=== PATIENT | female | born 1995 | race Caucasian/White ===

== ENCOUNTER 2022-12-30 10:14 | Emergency (ER) | payer OTHER ==
--- NOTE | 2022-12-30 10:17 | ERPHSYRPT ---
- History of Present Illness Time Seen by Provider: 12/30/22 10:17 Source: patient Exam Limitations: no limitations Physician History: This is a 27-year-old white female who is chronically on Lexapro and presents with gross hematuria, mild nonradiating chest tightness, dizziness and headache. Patient was 5 days late from her last menstrual period. She noticed hematuria. 2 days ago she took a urine test which was negative followed by a negative serum test. She has the above-stated symptoms today and she wanted evaluated. She denies shortness of breath. She has had light pelvic cramping. Timing/Duration: day(s) Severity: mild Character of Deficits: none Deficits: no difficulties Baseline/Normal Cognition: alert oriented x 3 Current Cognition: alert oriented x 3 Associated Symptoms: chest pain, headache Allergies/Adverse Reactions: No Known Drug Allergies Allergy (Unverified 12/30/22 10:33) Home Medications: Escitalopram Oxalate [Lexapro] 20 mg PO DAILY 12/30/22 [History] Travel Risk - International Travel Have you traveled outside of the country in past 3 weeks: No - Coronavirus Screening Are you exhibiting any of the following symptoms?: No Close contact with a COVID-19 positive Pt in past 14-21 Days: No - Review of Systems Constitutional: No Symptoms Eyes: No Symptoms Ears, Nose, & Throat: No Symptoms Respiratory: No Symptoms Cardiac: Chest Pain (Mild substernal nonradiating chest tightness) Abdominal/Gastrointestinal: No Symptoms Genitourinary Symptoms: No Symptoms Musculoskeletal: No Symptoms Skin: No Symptoms Neurological: Dizziness, Headache Psychological: No Symptoms Endocrine: No Symptoms Hematologic/Lymphatic: No Symptoms Immunological/Allergic: No Symptoms All Other Systems: Reviewed and Negative - Past Medical History Pertinent Past Medical History: Yes - Past Surgical History Past Surgical History: Yes - Nursing Vital Signs Nursing Vital Signs: Initial Vital Signs Temperature 98.3 F 12/30/22 10:44 Pulse Rate 75 12/30/22 10:44 Respiratory Rate 18 12/30/22 10:44 Blood Pressure 135/85 12/30/22 10:44 O2 Sat by Pulse Oximetry 99 12/30/22 10:44 Pain Scale Pain Intensity 5 - Quoc Coma Scale Best Eye Response (Olds): (4) open spontaneously Best Verbal Response (Olds): (5) oriented Best Motor Response (Quoc): (6) obeys commands Olds Total: 15 - Physical Exam General Appearance: no apparent distress, alert, anxiety Eye Exam: bilateral eye: normal inspection, PERRL, EOMI Ears, Nose, Throat Exam: normal ENT inspection, moist mucous membranes Neck Exam: normal inspection, non-tender, supple, full range of motion Respiratory: normal breath sounds, chest tenderness (Described as a mild substernal nonradiating chest tightness), lungs clear, airway intact, No re spiratory distress Cardiovascular: regular rate/rhythm, normal heart sounds, normal peripheral pulses Gastrointestinal: soft, normal bowel sounds, No tenderness Pelvic Exam: not done Rectal Exam: not done Back Exam: normal inspection, normal range of motion, No CVA tenderness, No vertebral tenderness Extremity Exam: normal inspection, normal range of motion, pelvis stable Mental Status: alert, oriented x 3, 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 Exam: normal hearing, normal speech, PERRL, tongue midline Coordination/Gait: normal finger to nose, normal gait, normal cerebellar function Motor/Sensory: no motor deficit, no sensory deficit, no pronator drift Skin Exam: normal color, warm, dry SpO2 Interpretation: normal O2 Delivery: Room Air - Course Nursing assessment & vital signs reviewed: Yes EKG Interpreted by Me: RATE (68), Sinus Rhythm, NORMAL AXIS, NORMAL INTERVALS, NORMAL QRS, NORMAL ST-T, Other (No acute ischemic changes on today's twelve-lead EKG.) Ordered Tests: Active Orders 24 hr Category Date Time Status EKG-ER Only STAT Care 12/30/22 10:56 Active IV Insertion STAT Care 12/30/22 10:56 Active CBC W DIFF Stat Lab 12/30/22 11:00 Completed CMP Stat Lab 12/30/22 11:00 Completed CULTURE,URINE Stat Lab 12/30/22 11:00 Received HCG QUALITATIVE, SERUM Stat Lab 12/30/22 11:00 Completed TROPONIN Q4H Lab 12/30/22 11:00 Completed TROPONIN Q4H Lab 12/30/22 15:00 Ordered TROPONIN Q4H Lab 12/30/22 19:00 Ordered UA W/RFX UR CULTURE Stat Lab 12/30/22 11:00 Completed Medication Summary Generic Name Dose Route Start Last Admin Trade Name Freq PRN Reason Stop Dose Admin Sodium Chloride 1,000 mls @ 999 mls/hr 12/30/22 10:56 12/30/22 11:00 Sodium Chloride 0.9% 1000 Ml IV 12/30/22 11:56 999 mls/hr .Q1H1M STA Administration Ceftriaxone Sodium/Dextrose 1 g in 50 mls @ 100 mls/hr 12/30/22 11:35 12/30/22 11:42 Rocephin 1 Gm-D5w 50 Ml Bag IV 12/30/22 12:04 100 ml/hr STAT STA 100 mls/hr Administration Discontinued Medications Generic Name Dose Route Start Last Admin Trade Name Rajeev PRN Reason Stop Dose Admin Sodium Chloride Confirm 12/30/22 10:59 Sodium Chloride 0.9% 1000 Ml Administered 12/30/22 11:00 Dose 1,000 mls @ ud .ROUTE .STK-MED ONE Ceftriaxone Sodium/Dextrose Confirm 12/30/22 11:40 Rocephin 1 Gm-D5w 50 Ml Bag Administered 12/30/22 11:41 Dose 1 g in 50 mls @ ud IV [facility] Lab/Rad Data: Laboratory Result Diagrams 12/30/22 11:00 12/30/22 11:00 Laboratory Results 12/30/22 12/30/22 12/30/22 Range/Units 11:00 11:00 11:00 WBC (4.0-10.5) x10^3/uL RBC (4.1-5.4) x10^6/uL Hgb (12.0-16.0) g/dL Hct (35-47) % MCV (78-100) fL MCH (26-32) pg MCHC (32-36) g/dL RDW (11.5-14.0) % Plt Count (150-450) x10^3/uL MPV (7.5-11.0) fL Gran % (36.0-66.0) % Immature Gran % (Auto) (0.00-0.4) % Nucleat RBC Rel Count (0.00-0.1) % Eos # (Auto) (0-0.5) x10^3/uL Immature Gran # (Auto) (0.00-0.03) x10^3u/L Absolute Lymphs (auto) (1.0-4.6) x10^3/uL Absolute Monos (auto) (0.0-1.3) x10^3/uL Absolute Nucleated RBC (0.00-0.01) x10^3u/L Lymphocytes % (24.0-44.0) % Monocytes % (0.0-12.0) % Eosinophils % (0.00-5.0) % Basophils % (0.0-0.4) % Absolute Granulocytes (1.4-6.9) x10^3/uL Basophils # (0-0.4) x10^3/uL Sodium (137-145) mmol/L Potassium (3.5-5.1) mmol/L Chloride (98-107) mmol/L Carbon Dioxide (22-30) mmol/L Anion Gap (5-15) MEQ/L BUN (7-17) mg/dL Creatinine (0.52-1.04) mg/dL Estimated GFR ML/MIN Glucose (74-106) mg/dL Calcium (8.4-10.2) mg/dL Total Bilirubin (0.2-1.3) mg/dL AST (14-36) U/L ALT (0-35) U/L Alkaline Phosphatase (38-126) U/L Troponin I < 0.012 (0.000-0.034) ng/mL Serum Total Protein (6.3-8.2) g/dL Albumin (3.5-5.0) g/dL Serum HCG, Qual NEGATIVE (NEGATIVE) Urine Color Red A (Yellow) Urine Appearance Turbid A (Clear) Urine pH 5.0 (4.6-8.0) Ur Specific [place] 1.025 (1.005-1.030) Urine Protein 100 A (Negative) Urine Glucose (UA) Negative (Negative) mg/dL Urine Ketones Negative (Negative) Urine Blood Large A (Negative) Urine Nitrite Negative (Negative) Urine Bilirubin Small A (Negative) Urine Urobilinogen 0.2 (0.2) mg/dL Ur Leukocyte Esterase Small A (Negative) U Hyaline Cast (Auto) NONE SEEN (0-2) /LPF Urine Microscopic RBC >100 A (0-5) /HPF Urine Microscopic WBC 21-50 A (0-5) /HPF Ur Epithelial Cells None Seen (None Seen) /HPF Urine Bacteria None Seen (None Seen) /HPF Urine Culture Reflexed YES (NO) 12/30/22 12/30/22 Range/Units 11:00 11:00 WBC 6.4 (4.0-10.5) x10^3/uL RBC 4.42 (4.1-5.4) x10^6/uL Hgb 12.8 (12.0-16.0) g/dL Hct 38.4 (35-47) % MCV 86.9 (78-100) fL MCH 29.0 (26-32) pg MCHC 33.3 (32-36) g/dL RDW 12.8 (11.5-14.0) % Plt Count 240 (150-450) x10^3/uL MPV 10.8 (7.5-11.0) fL Gran % 58.7 (36.0-66.0) % Immature Gran % (Auto) 0.2 (0.00-0.4) % Nucleat RBC Rel Count 0.0 (0.00-0.1) % Eos # (Auto) 0.17 (0-0.5) x10^3/uL Immature Gran # (Auto) 0.01 (0.00-0.03) x10^3u/L Absolute Lymphs (auto) 2.06 (1.0-4.6) x10^3/uL Absolute Monos (auto) 0.40 (0.0-1.3) x10^3/uL Absolute Nucleated RBC 0.00 (0.00-0.01) x10^3u/L Lymphocytes % 32.0 (24.0-44.0) % Monocytes % 6.2 (0.0-12.0) % Eosinophils % 2.6 (0.00-5.0) % Basophils % 0.3 (0.0-0.4) % Absolute Granulocytes 3.78 (1.4-6.9) x10^3/uL Basophils # 0.02 (0-0.4) x10^3/uL Sodium 139 (137-145) mmol/L Potassium 4.1 (3.5-5.1) mmol/L Chloride 106 (98-107) mmol/L Carbon Dioxide 22 (22-30) mmol/L Anion Gap 15.9 H (5-15) MEQ/L BUN 21 H (7-17) mg/dL Creatinine 0.83 (0.52-1.04) mg/dL Estimated GFR > 60.0 ML/MIN Glucose 97 (74-106) mg/dL Calcium 8.9 (8.4-10.2) mg/dL Total Bilirubin 0.50 (0.2-1.3) mg/dL AST 29 (14-36) U/L ALT 18 (0-35) U/L Alkaline Phosphatase 45 (38-126) U/L Troponin I (0.000-0.034) ng/mL Serum Total Protein 8.0 (6.3-8.2) g/dL Albumin 4.6 (3.5-5.0) g/dL Serum HCG, Qual (NEGATIVE) Urine Color (Yellow) Urine Appearance (Clear) Urine pH (4.6-8.0) Ur Specific [place] (1.005-1.030) Urine Protein (Negative) Urine Glucose (UA) (Negative) mg/dL Urine Ketones (Negative) Urine Blood (Negative) Urine Nitrite (Negative) Urine Bilirubin (Negative) Urine Urobilinogen (0.2) mg/dL Ur Leukocyte Esterase (Negative) U Hyaline Cast (Auto) (0-2) /LPF Urine Microscopic RBC (0-5) /HPF Urine Microscopic WBC (0-5) /HPF Ur Epithelial Cells (None Seen) /HPF Urine Bacteria (None Seen) /HPF Urine Culture Reflexed (NO) - Progress Progress: improved Progress Note: 12/30/22 11:38 This patient's medical issue is 1 of moderate complexity. The level of complexity and the work-up performed is based on review of the patient's past medical history, review of the patient's medication list, review of the patient's drug allergy list, history of present illness and physical findings on examination. This patient's work-up includes CBC, CMP, test, urinalysis, placement of intravenous line and infusion of 1 L of normal saline solution, twelve-lead EKG and troponin level. The results that have returned and show a significant urinary tract infection which in and of itself may cause her symptoms. She is hemodynamically stable and her hemoglobin is normal. The troponin level is pending. We provided her 1 g of Rocephin intravenously. I am discharging her to home as long as the troponin level is normal, with a prescription for Cipro that is remotely sent to her pharmacy. She is to follow- up with her primary care provider for further evaluation and management. Counseled pt/family regarding: lab results, diagnosis, need for follow-up, rad results Medical Desision Making - Diagnostic Testing Diagnostic test were ordered, analyzed, and reviewed by me: Yes - Risk of complications The pt has a mod risk of morbidity or mortality based on: Need for prescription drug management - Departure Departure Disposition: Home Clinical Impression: UTI (urinary tract infection), Hematuria, Dizziness Condition: Stable Critical Care Time: No Referrals: DESTINY LIM MD [ACTIVE STAFF] - Follow up/PCP as directed Additional Instructions: Drink plenty of fluids. Take your medication as prescribed. Follow-up with your primary prescribing provider for further evaluation management if your hematuria/vaginal bleeding persists. Prescriptions: Ciprofloxacin [Cipro 500 MG] 500 mg PO BID #14 tablet
[2022-12-30 10:54] VITALS: O2SAT 99
[2022-12-30] MEDS ORDERED: Sodium Chloride 0.9% 1000 ML 1,000 ML IV STA (10:56)
[2022-12-30] MEDS ORDERED: Sodium Chloride 0.9% 1000 ML 1,000 ML ONE (10:59)
[2022-12-30 11:06] LABS: Absolute Neutrophil Ct (ANC) 3.78 x10^3/uL (1.4-6.9); BASOPHIL % 0.3 % (0.0-0.4); Basophil (Absolute #) 0.02 x10^3/uL (0-0.4); Eosinophil % 2.6 % (0.00-5.0); Eosinophil (Absolute #) 0.17 x10^3/uL (0-0.5); Hematocrit 38.4 % (35-47); Hemoglobin 12.8 g/dL (12.0-16.0); IMMATURE GRAN # 0.01 x10^3u/L (0.00-0.03); IMMATURE GRAN % 0.2 % (0.00-0.4); Lymphocyte (Absolute #) 2.06 x10^3/uL (1.0-4.6); Mean Cell Volume 86.9 fL (78-100); Mean Corpuscular Hgb Concent. 33.3 g/dL (32-36); Mean Platelet Volume 10.8 fL (7.5-11.0); Monocytes % 6.2 % (0.0-12.0); Neutrophil % 58.7 % (36.0-66.0); Platelet Count 240 x10^3/uL (150-450); Red Blood Count 4.42 x10^6/uL (4.1-5.4); Red Cell Distribution Width 12.8 % (11.5-14.0); White Blood Count 6.4 x10^3/uL (4.0-10.5)
[2022-12-30 11:11] LABS: Appearance Turbid (Clear); Bacteria None Seen /HPF (None Seen); Bilirubin Small (Negative); Blood Large (Negative); Epithelial Cells None Seen /HPF (None Seen); Glucose, Urine Negative (Negative); Hyaline Casts NONE SEEN /LPF (0-2); Ketones Negative (Negative); Leukocyte Esterase Small (Negative); Nitrite Negative (Negative); Protein,Urine Dip 100 (Negative); RBC >100 /HPF (0-5); Specific Gravity 1.025 (1.005-1.030); Urobilinogen 0.2 mg/dL (0.2); WBC 21-50 /HPF (0-5)
[2022-12-30 11:20] LABS: ADD URINE CULTURE? YES (NO)
[2022-12-30 11:24] LABS: HCG SERUM TEST NEGATIVE (NEGATIVE)
[2022-12-30 11:28] LABS: ALBUMIN 4.6 g/dL (3.5-5.0); ALKALINE PHOSPHATASE 45 U/L (38-126); ANION GAP 15.9 MEQ/L (5-15); BLOOD UREA NITROGEN 21 mg/dL (7-17); CHLORIDE 106 mmol/L (98-107); Calcium 8.9 mg/dL (8.4-10.2); Carbon Dioxide 22 mmol/L (22-30); Creatinine 1 0.83 mg/dL (0.52-1.04); EST GLOMERULAR FILTRATION RATE > 60.0 ML/MIN; Glucose 97 mg/dL (74-106); Potassium 4.1 mmol/L (3.5-5.1); SGOT/AST 29 U/L (14-36); SGPT/ALT 18 U/L (0-35); SODIUM 139 mmol/L (137-145)
[2022-12-30 11:34] VITALS: BP 124/69; PULSE 70
[2022-12-30] MEDS ORDERED: ROCEPHIN 1 Gm-D5w 50 ml Bag** 1 G/50 ML IVPB IV STA (11:35)
[2022-12-30] MEDS ORDERED: ROCEPHIN 1 Gm-D5w 50 ml Bag** 1 G/50 ML IVPB IV ONE (11:40)
== END 2022-12-30 12:01 | disposition home or self-care (01) ==
LOC: ED 10:14
DX: N39.0 Urinary tract infection, site not specified (principal); R31.0 Gross hematuria; R42 Dizziness and giddiness; R07.9 Chest pain, unspecified; R51.9 Headache, unspecified; R10.2 Pelvic and perineal pain; Z79.899 Other long term (current) drug therapy
CPT/HCPCS: 36000; 36415; 80053; 81001; 84484; 84703; 85025; 87077; 87086; 87186; 93005; 99284; J0696

== ENCOUNTER 2024-03-20 19:57 | Emergency (ER) | payer OTHER ==
--- NOTE | 2024-03-20 20:06 | ERPHSYRPT ---
- History of Present Illness Time Seen by Provider: 03/20/24 19:58 Historian: patient Exam Limitations: no limitations Physician History: 28yo f presents via private vehicle for RLQ cramping abdominal pain and chest discomfort. Pt is reportedly 17wks , is a w/ 2 miscarriages both in the 6-8wk gestation timeframe. 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 Pt denies any radiation of the abdominal pain, does endorse some nausea, denies any changes in bowel habits. Pt reports some light vaginal bleeding last week but denies any vaginal bleeding or discharge today. Pt reports her chest discomfort feels "tight," does not endorse any back pain, sob, shoulder or jaw pain. Timing/Duration: today Activities at Onset: none Quality: cramping Chest Pain Radiation: no radiation Severity of Pain-Max: mild Severity of Pain-Current: mild Modifying Factors: Improves With: nothing Associated Symptoms: nausea, abdominal pain, No vomiting, No palpitations, No diaphoresis, No fever, No headache, No edema, No back pain Prior Chest Pain/Cardiac Workup: no prior chest pain Aspirin Treatment Today: no aspirin today Allergies/Adverse Reactions: No Known Drug Allergies Allergy (Verified 03/20/24 20:14) Home Medications: Citalopram Hydrobromide [Celexa] 40 mg PO DAILY 03/20/24 [History] hydrOXYzine HCL [Hydroxyzine HCl] 25 mg PO DAILY PRN PRN 03/20/24 [History] ondansetron HCL [Zofran] 8 mg PO DAILY PRN PRN 03/20/24 [History] Hx Influenza Vaccination/Date Given: No Hx Pneumococcal Vaccination/Date Given: No - Review of Systems Constitutional: No Symptoms Respiratory: No Symptoms Cardiac: Chest Pain, No Edema, No Palpitations, No Syncope, No Orthopnea Abdominal/Gastrointestinal: Abdominal Pain, Nausea, No Vomiting Genitourinary Symptoms: No Symptoms - Past Medical History Pertinent Past Medical History: Yes Neurological History: No Pertinent History ENT History: No Pertinent History Cardiac History: No Pertinent History Respiratory History: No Pertinent History Endocrine Medical History: No Pertinent History Musculoskeletal History: No Pertinent History GI Medical History: No Pertinent History History: No Pertinent History Psycho-Social History: No Pertinent History Female Reproductive Disorders: No Pertinent History Other Medical History: IBSC- - Past Surgical History Past Surgical History: Yes Neuro Surgical History: No Pertinent History Cardiac: No Pertinent History Respiratory: No Pertinent History Gastrointestinal: No Pertinent History Genitourinary: No Pertinent History Musculoskeletal: No Pertinent History Female Surgical History: No Pertinent History - Social History Smoking Status: Never smoker Exposure to second hand smoke: No Drug Use: none Patient Lives Alone: No - Nursing Vital Signs Nursing Vital Signs: Initial Vital Signs Temperature 99.1 F 03/20/24 19:58 Pulse Rate 67 03/20/24 19:58 Respiratory Rate 21 03/20/24 19:58 Blood Pressure 105/70 03/20/24 19:58 O2 Sat by Pulse Oximetry 98 03/20/24 19:58 Pain Scale Pain Intensity 6 - Physical Exam General Appearance: no apparent distress, alert Respiratory Exam: normal breath sounds, lungs clear, airway intact, No chest tenderness, No respiratory distress Cardiovascular Exam: regular rate/rhythm, normal heart sounds, normal peripheral pulses, capillary refill <2 sec Gastrointestinal/Abdomen Exam: soft, normal bowel sounds, No tenderness, No distention, No mass, No guarding Pelvic Exam: not done Back Exam: normal inspection, No CVA tenderness Skin Exam: normal color, warm, dry SpO2 Interpretation: normal SpO2: 100 O2 Delivery: Room Air - Course EKG Interpreted by Me: RATE (66), Sinus Rhythm, NORMAL ST-T, Other (pr 143, qtcb 405, not suggestive of acute ischemia) Ordered Tests: Active Orders 24 hr Category Date Time Status NPO (ED) STAT Care 03/20/24 20:01 Active OB >14 WKS 1st GESTATION [US] Stat Exams 03/20/24 20:11 Taken CBC W DIFF Stat Lab 03/20/24 20:10 Completed CMP Stat Lab 03/20/24 20:10 Completed TROPONIN Q4H Lab 03/20/24 20:10 Completed TROPONIN Q4H Lab 03/21/24 00:15 Ordered TROPONIN Q4H Lab 03/21/24 04:15 Ordered UA W/RFX UR CULTURE Stat Lab 03/20/24 21:23 Completed Medication Summary Discontinued Medications Generic Name Dose Route Start Last Admin Trade Name Freq PRN Reason Stop Dose Admin Acetaminophen 650 mg 03/20/24 20:32 03/20/24 20:35 Acetaminophen 325 Mg Tablet PO 03/20/24 20:33 650 mg STAT ONE Administration Acetaminophen Confirm 03/20/24 20:34 Acetaminophen 325 Mg Tablet Administered 03/20/24 20:35 Dose 650 mg .ROUTE .STK-MED ONE Hydroxyzine HCl 25 mg 03/20/24 20:32 03/20/24 20:36 Hydroxyzine Hcl 25 Mg Tablet PO 03/20/24 20:33 25 mg STAT ONE Administration Hydroxyzine HCl Confirm 03/20/24 20:34 Hydroxyzine Hcl 25 Mg Tablet Administered 03/20/24 20:35 Dose 25 mg .ROUTE .STK-MED ONE Ondansetron HCl 4 mg 03/20/24 20:03 03/20/24 20:16 Zofran 4 Mg/Udtablet Orally Disintegrating PO 03/20/24 20:04 4 mg STAT ONE Administration Ondansetron HCl Confirm 03/20/24 20:14 Zofran 4 Mg/Udtablet Orally Disintegrating Administered 03/20/24 20:15 Dose 4 mg .ROUTE .STK-MED ONE Lab/Rad Data: Laboratory Result Diagrams 03/20/24 20:10 03/20/24 20:10 Laboratory Results 03/20/24 03/20/24 03/20/24 Range/Units 21:23 20:10 20:10 WBC (3.98-10.04) x10^3/uL RBC (3.93-5.22) x10^6/uL Hgb (11.2-15.7) g/dL Hct (34.1-44.9) % MCV (79.4-94.8) fL MCH (25.6-32.2) pg MCHC (32.2-35.5) g/dL RDW (11.7-14.4) % Plt Count (182-369) x10^3/uL MPV (9.4-12.3) fL Gran % (34.0-71.1) % Immature Gran % (Auto) (0.001-0.429) % Nucleat RBC Rel Count (0.00-0.2) % Eos # (Auto) (0.04-0.36) x10^3/uL Immature Gran # (Auto) (0.001-0.031) x10^3u/L Absolute Lymphs (auto) (1.18-3.74) x10^3/uL Absolute Monos (auto) (0.24-0.86) x10^3/uL Absolute Nucleated RBC (0.00-0.012) x10^3u/L Lymphocytes % (19.3-51.7) % Monocytes % (4.7-12.5) % Eosinophils % (0.7-5.8) % Basophils % (0.1-1.2) % Absolute Granulocytes (1.56-6.13) x10^3/uL Basophils # (0.01-0.08) x10^3/uL Sodium 135 (135-145) mmol/L Potassium 3.4 L (3.5-5.1) mmol/L Chloride 104 (98-107) mmol/L Carbon Dioxide 21 L (22-30) mmol/L Anion Gap 14.1 (5-15) MEQ/L BUN 10 (7-17) mg/dL Creatinine 0.59 (0.52-1.04) mg/dL Estimated GFR 127.4 ML/MIN Glucose 91 (74-106) mg/dL Calcium 9.3 (8.4-10.2) mg/dL Total Bilirubin 0.20 (0.2-1.3) mg/dL AST 28 (14-36) U/L ALT 18 (0-35) U/L Alkaline Phosphatase 44 (38-126) U/L Troponin I < 0.012 (0.000-0.033) ng/mL Serum Total Protein 7.4 (6.3-8.2) g/dL Albumin 4.3 (3.5-5.0) g/dL Urine Color Yellow (Yellow) Urine Appearance Clear (Clear) Urine pH 6.5 (4.6-8.0) Ur Specific [place] <=1.005 (1.005-1.030) Urine Protein Negative (Negative) Urine Glucose (UA) Negative (Negative) mg/dL Urine Ketones Negative (Negative) Urine Blood Negative (Negative) Urine Nitrite Negative (Negative) Urine Bilirubin Negative (Negative) Urine Urobilinogen 0.2 (0.2) mg/dL Ur Leukocyte Esterase Negative (Negative) U Hyaline Cast (Auto) NONE SEEN (0-2) /LPF Urine Microscopic RBC 0-2 (0-5) /HPF Urine Microscopic WBC 0-2 (0-5) /HPF Ur Epithelial Cells None Seen (None Seen) /HPF Urine Bacteria None Seen (None Seen) /HPF Urine Culture Reflexed NO (NO) 03/20/24 Range/Units 20:10 WBC 12.6 H (3.98-10.04) x10^3/uL RBC 3.79 L (3.93-5.22) x10^6/uL Hgb 11.6 (11.2-15.7) g/dL Hct 32.5 L (34.1-44.9) % MCV 85.8 (79.4-94.8) fL MCH 30.6 (25.6-32.2) pg MCHC 35.7 H (32.2-35.5) g/dL RDW 13.1 (11.7-14.4) % Plt Count 215 (182-369) x10^3/uL MPV 10.7 (9.4-12.3) fL Gran % 71.2 H (34.0-71.1) % Immature Gran % (Auto) 0.7 H (0.001-0.429) % Nucleat RBC Rel Count 0.0 (0.00-0.2) % Eos # (Auto) 0.29 (0.04-0.36) x10^3/uL Immature Gran # (Auto) 0.09 H (0.001-0.031) x10^3u/L Absolute Lymphs (auto) 2.58 (1.18-3.74) x10^3/uL Absolute Monos (auto) 0.63 (0.24-0.86) x10^3/uL Absolute Nucleated RBC 0.00 (0.00-0.012) x10^3u/L Lymphocytes % 20.6 (19.3-51.7) % Monocytes % 5.0 (4.7-12.5) % Eosinophils % 2.3 (0.7-5.8) % Basophils % 0.2 (0.1-1.2) % Absolute Granulocytes 8.93 H (1.56-6.13) x10^3/uL Basophils # 0.03 (0.01-0.08) x10^3/uL Sodium (135-145) mmol/L Potassium (3.5-5.1) mmol/L Chloride (98-107) mmol/L Carbon Dioxide (22-30) mmol/L Anion Gap (5-15) MEQ/L BUN (7-17) mg/dL Creatinine (0.52-1.04) mg/dL Estimated GFR ML/MIN Glucose (74-106) mg/dL Calcium (8.4-10.2) mg/dL Total Bilirubin (0.2-1.3) mg/dL AST (14-36) U/L ALT (0-35) U/L Alkaline Phosphatase (38-126) U/L Troponin I (0.000-0.033) ng/mL Serum Total Protein (6.3-8.2) g/dL Albumin (3.5-5.0) g/dL Urine Color (Yellow) Urine Appearance (Clear) Urine pH (4.6-8.0) Ur Specific [place] (1.005-1.030) Urine Protein (Negative) Urine Glucose (UA) (Negative) mg/dL Urine Ketones (Negative) Urine Blood (Negative) Urine Nitrite (Negative) Urine Bilirubin (Negative) Urine Urobilinogen (0.2) mg/dL Ur Leukocyte Esterase (Negative) U Hyaline Cast (Auto) (0-2) /LPF Urine Microscopic RBC (0-5) /HPF Urine Microscopic WBC (0-5) /HPF Ur Epithelial Cells (None Seen) /HPF Urine Bacteria (None Seen) /HPF Urine Culture Reflexed (NO) - Progress Progress: improved Air Movement: good Progress Note: 03/20/24 21:22 pt feeling much better since dose of tylenol and hydroxyzine FHR 156 on doppler i discussed US findings w/ US tech who reported FHR 157, cervix closed, no abnormalities of endometrium, no right ovarian pathology noted, good movement 03/20/24 21:42 UA not suggestive of UTI troponins negative, labs largely unremarkable, potassium slightly decreased at 3.4 differentials include - appendicitis, round ligament pain, anxiety, GERD, spontaneous , threatened , ACS plan for discharge home w/ close OB follow up, instructed to call OB's office first thing tomorrow to discuss symptoms can continue tylenol, zofran, pepcid for abdominal discomfort and nausea return to ED if: develop vaginal bleeding, abdominal pain worsens, chest pain worsens or you become short of breath 03/20/24 22:08 03/20/24 22:09 Blood Culture(s) Obtained: No Antibiotics given: No Counseled pt/family regarding: lab results, diagnosis, need for follow-up, rad results Medical Desision Making - Diagnostic Testing Diagnostic test were ordered, analyzed, and reviewed by me: Yes Radiological Interpretation: Reviewed by me, Teleradiologist Report - Risk of complications Minimal Risk: Minimal risk of morbidity - Departure Departure Disposition: Home Clinical Impression: Chest discomfort, Abdominal pain affecting , Nausea Qualifiers: Weeks of gestation: 17 weeks Qualified Code(s): Z3A.17 - 17 weeks gestation of Condition: Stable Critical Care Time: No Referrals: RAMON SOUZA FNP [Primary Care Provider] - Follow up/PCP as directed Additional Instructions: plan for discharge home w/ close OB follow up w/ Dr Pal, instructed to call OB's office first thing tomorrow to discuss symptoms can continue tylenol, zofran, pepcid for abdominal discomfort and nausea return to ED if: develop vaginal bleeding, abdominal pain worsens, chest pain worsens or you become short of breath
[2024-03-20 20:13] VITALS: TEMP 99.1
[2024-03-20 20:14] LABS: Absolute Neutrophil Ct (ANC) 8.93 x10^3/uL (1.56-6.13); BASOPHIL % 0.2 % (0.1-1.2); Basophil (Absolute #) 0.03 x10^3/uL (0.01-0.08); Eosinophil % 2.3 % (0.7-5.8); Eosinophil (Absolute #) 0.29 x10^3/uL (0.04-0.36); Hematocrit 32.5 % (34.1-44.9); Hemoglobin 11.6 g/dL (11.2-15.7); IMMATURE GRAN # 0.09 x10^3u/L (0.001-0.031); IMMATURE GRAN % 0.7 % (0.001-0.429); Lymphocyte (Absolute #) 2.58 x10^3/uL (1.18-3.74); Lymphocytes % 20.6 % (19.3-51.7); Mean Cell Volume 85.8 fL (79.4-94.8); Mean Corpuscular Hemoglobin 30.6 pg (25.6-32.2); Mean Corpuscular Hgb Concent. 35.7 g/dL (32.2-35.5); Mean Platelet Volume 10.7 fL (9.4-12.3); Monocyte (Absolute #) 0.63 x10^3/uL (0.24-0.86); Neutrophil % 71.2 % (34.0-71.1); Platelet Count 215 x10^3/uL (182-369); Red Blood Count 3.79 x10^6/uL (3.93-5.22); Red Cell Distribution Width 13.1 % (11.7-14.4); White Blood Count 12.6 x10^3/uL (3.98-10.04)
[2024-03-20] MEDS ORDERED: ZOFRAN ODT 4 MG ONE (20:14)
[2024-03-20] MEDS: ZOFRAN ODT 4 MG PO ONE (20:16)
[2024-03-20 20:26] VITALS: RESP 20
[2024-03-20 20:33] LABS: ALBUMIN 4.3 g/dL (3.5-5.0); ANION GAP 14.1 MEQ/L (5-15); BILIRUBIN,TOTAL 0.2 mg/dL (0.2-1.3); Calcium 9.3 mg/dL (8.4-10.2); Creatinine 1 0.59 mg/dL (0.52-1.04); EST GLOMERULAR FILTRATION RATE 127.4 ML/MIN; Potassium 3.4 mmol/L (3.5-5.1); Total Protein 7.4 g/dL (6.3-8.2)
[2024-03-20] MEDS ORDERED: TYLENOL 325 MG ONE (20:34)
[2024-03-20] MEDS ORDERED: ATARAX 25 MG ONE (20:34)
[2024-03-20] MEDS: TYLENOL 325 MG PO ONE (20:35)
[2024-03-20] MEDS: ATARAX 25 MG PO ONE (20:36)
[2024-03-20 20:45] VITALS: O2SAT 100
[2024-03-20 21:03] VITALS: BP 105/81; PULSE 75
[2024-03-20 21:35] LABS: Appearance Clear (Clear); Bacteria None Seen /HPF (None Seen); Bilirubin Negative (Negative); Blood Negative (Negative); Epithelial Cells None Seen /HPF (None Seen); Glucose, Urine Negative (Negative); Hyaline Casts NONE SEEN /LPF (0-2); Ketones Negative (Negative); Leukocyte Esterase Negative (Negative); Nitrite Negative (Negative); Ph 6.5 (4.6-8.0); Protein,Urine Dip Negative (Negative); RBC 0-2 /HPF (0-5); Specific Gravity <=1.005 (1.005-1.030); Urobilinogen 0.2 mg/dL (0.2); WBC 0-2 /HPF (0-5)
[2024-03-20 21:38] LABS: ADD URINE CULTURE? NO (NO)
--- NOTE | 2024-03-21 08:14 | XRAY ---
Indication: Right lower quadrant pain. History miscarriage. Limited transabdominal early OB ultrasound performed. Comparison: None Single intrauterine with heart rate 157 BPM. Posterior placenta without abnormal retroplacental fluid. Closed cervix with cervical length 3.1 cm. Comment: Preliminary report was given.
== END 2024-03-20 22:08 | disposition home or self-care (01) ==
LOC: ED 19:57
DX: O26.892 Other specified pregnancy related conditions, second trimester (principal); Z3A.17 17 weeks gestation of pregnancy; R10.31 Right lower quadrant pain; R07.9 Chest pain, unspecified; R11.0 Nausea; Z79.899 Other long term (current) drug therapy
CPT/HCPCS: 36415; 76805; 80053; 81001; 84484; 85025; 99283; Q0162; A9270-GY